=== PATIENT | male | born 1955 | race Caucasian/White ===

== ENCOUNTER 2017-03-14 01:51 | Emergency (ER) | payer OTHER ==
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
[2017-03-14] MEDS ORDERED: ZYRTEC (02:02)
== END 2017-03-14 04:07 | disposition home or self-care (01) ==
LOC: SED 01:51
DX: S33.5XXA Sprain of ligaments of lumbar spine, initial encounter (principal); S23.3XXA Sprain of ligaments of thoracic spine, initial encounter; S13.4XXA Sprain of ligaments of cervical spine, initial encounter; Z86.19 Personal history of other infectious and parasitic diseases; V49.50XA Passenger injured in collision with unspecified motor vehicles in traffic accident, initial encounter; Y92.410 Unspecified street and highway as the place of occurrence of the external cause
CPT/HCPCS: 72072; 72100; 72125; 99284

== ENCOUNTER 2017-03-17 15:34 | Emergency (ER) | payer OTHER ==
[~2017-03-17 15:34] MED LIST: ZYRTEC
== END 2017-03-17 18:03 | disposition home or self-care (01) ==
LOC: SED 15:34
DX: S29.012A Strain of muscle and tendon of back wall of thorax, initial encounter (principal); M54.30 Sciatica, unspecified side; I10 Essential (primary) hypertension; F17.210 Nicotine dependence, cigarettes, uncomplicated; Z23 Encounter for immunization; V89.2XXA Person injured in unspecified motor-vehicle accident, traffic, initial encounter; Y92.410 Unspecified street and highway as the place of occurrence of the external cause
CPT/HCPCS: 90471; 90715; 96372; 99283; J1885

== ENCOUNTER 2017-04-25 15:02 | Emergency (ER) | payer OTHER ==
[2017-04-25] MEDS ORDERED: ROBAXIN 750750 MG PO (15:09)
== END 2017-04-25 17:11 | disposition home or self-care (01) ==
LOC: SED 15:02
DX: M54.2 Cervicalgia (principal); M54.5 Low back pain; M54.6 Pain in thoracic spine; I10 Essential (primary) hypertension; E78.5 Hyperlipidemia, unspecified; Z86.19 Personal history of other infectious and parasitic diseases; F17.210 Nicotine dependence, cigarettes, uncomplicated; Z79.899 Other long term (current) drug therapy
CPT/HCPCS: 96372; 99283; J1885; J2360